=== PATIENT | female | born 2000 | race Caucasian/White ===

== ENCOUNTER 2021-02-13 04:37 | Emergency (ER) | payer BC ==
[~2021-02-13] VITALS: Ht 165.1 cm; Wt 68.0 kg
[2021-02-13 04:37] VITALS: BP_SYST 132
--- NOTE | 2021-02-13 04:40 | NUR ---
Patient to ER bed 2 to gown for evaluation. Side rails up.
--- NOTE | 2021-02-13 04:42 | NUR ---
Pt BIB family to ED C/O L Shoulder pain 6/10 radiating to back and chest just after she drove her car around 0 last nite. No other complaints noted VSS no s/s of acute distress Resting on gurney rails up
--- NOTE | 2021-02-13 04:44 | NUR ---
Dr. Mccrary bedside for pt eval
[2021-02-13] MEDS: ASPIRIN 81 MG TAB.CHEW PO ONE (05:07)
--- NOTE | 2021-02-13 05:10 | NUR ---
Portable X Ray at bedside well tolerated
[2021-02-13 06:23] LABS: BASOPHILS % (AUTO) 0.6 % (0.0-2.0); EOSINOPHILS # (AUTO) 0.1 K/uL (0.0-0.4); EOSINOPHILS % (AUTO) 1.4 % (0.0-4.0); HEMATOCRIT 39.7 % (36-48); HEMOGLOBIN 13.6 g/dL (12.0-16.0); LYMPHOCYTES # (AUTO) 1.4 K/uL (1.0-5.5); LYMPHOCYTES % (AUTO) 20.5 % (20.5-51.5); MEAN CORPUSCULAR HEMOGLOBIN 30 pg (27-31); MEAN CORPUSCULAR HGB CONC 34 % (32-36); MEAN CORPUSCULAR VOLUME 87 fL (79.0-98.0); MONOCYTES # (AUTO) 0.6 K/uL (0.0-1.0); MONOCYTES % (AUTO) 7.9 % (1.7-9.3); NEUTROPHILS # (AUTO) 4.9 K/uL (1.8-7.7); NEUTROPHILS % (AUTO) 69.6 % (40.0-70.0); PLATELET COUNT (AUTO) 167 K/uL (130-430); RED BLOOD CELL COUNT(AUTO) 4.59 MIL/uL (4.2-6.2); RED CELL DISTRIBUTION WIDTH 12.4 % (9.0-15.0)
[2021-02-13 06:38] LABS: CALCIUM 8.5 mg/dL (8.4-11.0); CREATININE 0.84 mg/dL (0.55-1.30); POTASSIUM 3.5 mmol/L (3.5-5.1)
[2021-02-13 06:53] LABS: ALBUMIN 3.4 g/dL (3.4-4.8); TOTAL BILIRUBIN 0.3 mg/dL (0.0-1.0)
--- NOTE | 2021-02-13 07:00 | NUR ---
Assumed care of patient, report received from [facility]. Pt currently resting in bed, no acute distress noted.
--- NOTE | 2021-02-13 07:20 | NUR ---
Patient given written and verbal discharge instructions and verbalizes understanding. ER MD discussed with patient the results and treatment provided. Patient in stable condition. ID arm band removed. No prescriptions given. Patient educated on pain management and to follow up with PMD. Pain Scale 0. Opportunity for questions provided and answered. Medication side effect fact sheet provided.
[2021-02-13 07:21] VITALS: BP_SYST 132
== END 2021-02-13 07:20 | disposition home or self-care (01) ==
LOC: SED 04:37
DX: R07.2 Precordial pain (principal)
CPT/HCPCS: 36415; 71045; 80053; 83880; 84484; 84702; 85025; 85379; 93005; 99285